=== PATIENT | male | born 1980 | race Caucasian/White ===

== ENCOUNTER 2018-11-01 00:46 | Inpatient (IN) | payer MEDICAID | END 2018-11-08 15:15 | disposition home or self-care (01) | LOC: ICU 2S 11-04 05:10 → PCU 3S 11-05 01:30 → ER 00:46 → ED HOLD 02:50 → SUR 3N 16:30 ==

== ENCOUNTER 2021-02-11 13:53 | Inpatient (IN) | payer MEDICAID ==
[~2021-02-11] VITALS: Ht 177.8 cm; Wt 105.0 kg
[~2021-02-11 13:53] MED LIST: FOLI1TAB16 PO; LOP25T PO; rocuronium bromide 100mg/10ml (10mg/ml) injection IV ONE; thiamine tablet PO
[2021-02-11] MEDS ORDERED: thiamine 100mg tablet PO ONE (14:20)
[2021-02-11] MEDS ORDERED: LORazepam 2 mg/ml vial IV ONE ×3 (14:20→18:00)
[2021-02-11] MEDS ORDERED: normal saline 1000ml 1,000 ML IV ONE ×2 (14:20→19:40)
[2021-02-11 14:50] LABS: EOSINOPHILS % (AUTO) 0.1 % (0-6); MONOCYTES # (AUTO) 0.5 X10'3 (0-0.9); RED BLOOD COUNT 5.43 X10'6 (4.70-6.10)
[2021-02-11 14:52] LABS: BASOPHILS % (AUTO) 0.9 % (0-1); HEMATOCRIT 47.6 % (42.0-52.0); HEMOGLOBIN 16.1 g/dl (14.0-17.9); LYMPHOCYTES # (AUTO) 0.4 X10'3 (1.1-4.8); LYMPHOCYTES % (AUTO) 9.4 % (21-51); MEAN CORPUSCULAR HEMOGLOBIN 29.8 PG (27.0-31.0); MEAN CORPUSCULAR HGB CONC 33.9 g/dL (33.0-36.5); MEAN CORPUSCULAR VOLUME 87.8 FL (78-98); MEAN PLATELET VOLUME 9.5 FL (7.4-10.4); MONOCYTES % (AUTO) 10.6 % (2-12); NEUTROPHILS # (AUTO) 3.5 X10'3 (1.8-7.7); RED CELL DISTRIBUTION WIDTH 18.8 % (11.5-14.5); WHITE BLOOD COUNT 4.4 X10'3 (4.5-11.0)
[2021-02-11 15:03] LABS: ALANINE AMINOTRANSFERASE 101 U/L (12-78); ALBUMIN 3.9 G/DL (3.4-5.0); ALBUMIN/GLOBULIN RATIO 0.8 (1.1-1.5); ALKALINE PHOSPHATASE 93 IU/L (46-116); ANION GAP 17 (8-16); ASPARTATE AMINO TRANSFERASE 119 U/L (10-37); BLOOD UREA NITROGEN 9 MG/DL (7-18); BUN/CREATININE RATIO 7.9 (5.4-32.0); CALCIUM 9.3 MG/DL (8.5-10.1); CHLORIDE 94 MMOL/L (99-107); CREATININE 1.14 MG/DL (0.60-1.10); GLUCOSE 153 MG/DL (70-104); SODIUM 135 MMOL/L (135-145); TOTAL PROTEIN 8.5 G/DL (6.4-8.2); eGFR 72 ML/MIN
[2021-02-11 15:10] LABS: PLATELET COUNT 47 X10'3 (140-440)
[2021-02-11 15:12] LABS: ANISOCYTOSIS 2+; PLATELET ESTIMATE DECREASED
[2021-02-11 15:13] LABS: TEAR DROP CELLS 1+
--- NOTE | 2021-02-11 15:25 | NUR ---
Dr Hdz made aware of HR 140's-160's, also informed MD patient placed on O2 2L via nasal canula for SPO2 89-91% for past 25 min. Primary RN Lucille made aware.
--- NOTE | 2021-02-11 15:29 | NUR ---
patient is very tremulous, reports last etoh 2 days ago
--- NOTE | 2021-02-11 15:40 | NUR ---
DR JONES AWARE THAT PATIENT IS VERY TREMULOUS AFTER THE 4MG IV ATIVAN AFTER 2MG ATIVAN IV, MD ORDERED PHENOBARBITAL. AWARE THAT PATIENT UNABLE TO GO TO CT SCAN UNTIL HE IS NOT SHAKING
--- NOTE | 2021-02-11 16:11 | NUR ---
SPOKE TO PHARMACY TO OBTAIN PHENOBARBITAL
--- NOTE | 2021-02-11 16:22 | NUR ---
PHENOBARB NOT READY YET
[2021-02-11] MEDS ORDERED: phenobarbital inj 500 MG in normal saline 250ml IV soln 250 ML IV ONE (16:30)
[2021-02-11] MEDS: phenobarbital inj 260 MG in normal saline 100ml IV soln 100 ML IV SCH ×2 (16:56→17:29)
[2021-02-11] MEDS: potassium Cl 20mEq in D5-NS 1,000 ML IV SCH ×4 (16:57→23:02)
--- NOTE | 2021-02-11 17:19 | NUR ---
VANESA KEITH MOTHER [phone] TOOK HIS MEDICATIONS AND HIS CLOTHES HOME
--- NOTE | 2021-02-11 17:25 | NUR ---
DR SANTOS CHECKIMG IN ON PATIENT
[2021-02-11] MEDS ORDERED: acetaminophen 325mg tablet PO STA (17:54)
[2021-02-11] MEDS ORDERED: vancomycin/NS 1 GM ADD-VANTAGE 250 ML IV ONE (17:55)
[2021-02-11 18:19] LABS: CLARITY,URINE CLEAR (Clear); COLOR,URINE YELLOW (Yellow); GLUCOSE, URINE NEGATIVE (Neg); KETONES,URINE >=80 mg/dl (Neg); LEUKOCYTE ESTERASE ,URINE NEGATIVE (Neg); NITRITES, URINE NEGATIVE (Neg); OCCULT BLOOD,URINE TRACE-INTACT (Neg); PROTEIN,URINE 100 mg/dl (Neg); UROBILINOGEN,URINE 0.2 E.U/dL (0.2-1.0)
[2021-02-11 18:30] LABS: UA COLLECTION TYPE URINAL
[2021-02-11 18:31] LABS: BACTERIA,URINE FEW /HPF (Neg); RBC,URINE 0-2 /HPF (0-2); SQUAMOUS EPITHELIAL CELL,UR FEW /LPF (FEW); WBC,URINE NONE SEEN /HPF (0-4)
--- NOTE | 2021-02-11 18:33 | NUR ---
DR JONES MADE AWARE 6 MG OF ATIVAN IVP NOT EFFECTIVE ON PATIENT.
[2021-02-11] MEDS ORDERED: dexmedetomidin/NS 400mcg/100ml 100 ML IV SCH (18:35)
--- NOTE | 2021-02-11 18:35 | NUR ---
PATIENT DANGEROUSLY AGITATED, ATTEMPTING TO CLIMB OUT OF BED, NOT FOLLOWING COMMANDS, ATTEMPTING TO RIP OUT IV AND ANYTHING ATTCHRED TO HIM. PLAN WAS TO ATTEMPT PRECEDEX GTT BUT DISCUSSION WITH DR JONES, WE ARE GOING TO INTUBATE PATIENT. HR 145 ST, RR 38, PLACED ON 100% NON BREATHER
--- NOTE | 2021-02-11 18:40 | NUR ---
PT MOVED FROM BED 15 TO BED 2 FOR INTUBATION/RSI.
[2021-02-11] MEDS ORDERED: propofol 10mg/ml 20ml vial IV ONE (18:45)
[2021-02-11] MEDS ORDERED: rocuronium 10mg/ml inj IV ONE (18:45)
[2021-02-11] MEDS ORDERED: piperacillin/tazo 4.5gm/100ml 100 ML IV ONE ×2 (18:50→20:00)
--- NOTE | 2021-02-11 19:00 | NUR ---
PATIENT INTUBATED BY DR JONES WITH 8.0 OETT, 24 CM AT LIP, COLOR CHANGE, AUSCULTAION AND DIRECT VISUALIZATION. 120 MG ROCURONIUM AND 150 MG DIPRIVAN GIVEN FOR INTUBATION, 16 TUNISIAN OG TUBE PLACED POSITIVE AIR BOLUS, CXR TAKEN, TEMP CONTRERAS TO BE PLACED BY TERRANCE BARBA. BEDSIDE REPORT GIVEN TO TERRANCE BARBA
--- NOTE | 2021-02-11 19:01 | NUR ---
[address]G [address] JONES PRIOR TO INTUBATION
[2021-02-11] MEDS ORDERED: FENTANYL-0.9 % NACL/PF 100 ML IV PRN (19:10)
--- NOTE | 2021-02-11 19:28 | NUR ---
SPOKE WITH MOTHER KAYLENE KEITH, UPDATED HER REGARDING ALCOHOL WITHDRAWAL SEVERE ENOUGH TO BE PLACED ON A BREATHING MACHINE AND REQUIRING SEDATION, ALL QUESTIONS ANSWERED IN SIMPLE TERMS. OFFERED TO HAVE MOTHER SPEAK TO MD, MOTHER DECLINED.
[2021-02-11 19:34] LABS: ABG BASE EXCESS -1.3 mmol/L (-2.0-2.0); ABG HCO3 22.4 mmol/L (22.0-26.0); ABG OXYGEN SATURATION 89.6 % (94-97); ABG PCO2 (T) 34.4 mmHg (35.0-48.0); ABG PO2 (T) 59.7 mmHg (75.0-100.0); ALLEN'S TEST POSITIVE; FCOHb 1.6 % (0.0-3.9); FMetHb 0.2 % (0.0-1.5); PATIENT TEMPERATURE 36.7; PEEP 5 cm H2O; RESPIRATORY RATE 16 b/min; TIDAL VOLUME 500 mL; TOTAL HEMOGLOBIN 15.4 G/dl (14.0-18.0)
[2021-02-11] MEDS: potassium Cl 10 mEq/100mL bag IV SCH ×3 (20:20→22:20)
[2021-02-11] MEDS ORDERED: THIAMINE IV SCH (20:20)
[2021-02-11] MEDS ORDERED: magnesium 2GM in 50ml NS 50 ML IV ONE (20:20)
[2021-02-11] MEDS ORDERED: MAGNESIUM SULF IV SCH (20:20)
[2021-02-11] MEDS ORDERED: WATER IV SCH (20:20)
[2021-02-11] MEDS ORDERED: DEXTROSE 5% IV SCH (20:20)
[2021-02-11] MEDS: midazolam 100mg in NS 100ml 100 ML IV PRN (20:29)
[2021-02-11] MEDS: propofol 1000mg/100ml bottle 100 ML IV PRN (20:39)
[2021-02-11 20:45] LABS: MAGNESIUM 2.5 MG/DL (1.5-2.4); PHOSPHORUS 1.6 MG/DL (2.3-4.5)
[2021-02-11] MEDS ORDERED: levetiracetam inj 2,000 MG in normal saline 250ml IV soln 250 ML IV ONE (20:50)
--- NOTE | 2021-02-11 21:40 | NUR ---
Spoke with ICU MD via phone: pt still not sedated enough to do LP, still with slight tremors of hand, movement when rolled, gagging on ET tube while being rolled. [employer] ok to start Precedex in addition to Propofol and Versed gtt, states "ok to max out Precedex, he will take a lot of sedation."
--- NOTE | 2021-02-11 21:45 | NUR ---
Pt positioned for LP by ER MD. LP perfomed and fluid sent to lab. Dressing applied to puncture site and patient repositioned on his back.
[2021-02-11] MEDS: dexmedetomidine/D5W 100mL 100 ML IV SCH (22:32)
--- NOTE | 2021-02-11 22:40 | NUR ---
OG tube in place, 150 ml watery greenish yellow in collection canister
[2021-02-11 23:28] LABS: GLUCOSE,CSF 84 MG/DL (40-75); TOTAL PROTEIN,CSF 28 MG/DL (15-45)
[2021-02-11 23:57] VITALS: BP 116/77
[2021-02-12] VITALS (24 sets, daily range): BP systolic 99–161; BP diastolic 66–86
[2021-02-12 00:27] LABS: APPEARANCE,CSF CLEAR; CSF RBC 6 /CU MM (0); CSF SUPERNATANT COLOR COLORLESS; CSF VOLUME 8 ML; TUBE# COUNTED 1
[2021-02-12 00:28] LABS: CSF WBC CT 1 /CU MM (0-5)
[2021-02-12 00:29] LABS: APPEARANCE,CSF CLEAR; CSF RBC 0 /CU MM (0); CSF SUPERNATANT COLOR COLORLESS; CSF VOLUME 8 ML; CSF WBC CT 0 /CU MM (0-5); TUBE# COUNTED 4
[2021-02-12] MEDS: dexmedetomidine/D5W 100mL 100 ML IV SCH ×5 (00:34→22:07)
[2021-02-12] MEDS: propofol 1000mg/100ml bottle 100 ML IV PRN ×2 (00:36→09:18)
[2021-02-12] MEDS: midazolam 100mg in NS 100ml 100 ML IV PRN ×2 (01:26→22:36)
[2021-02-12] MEDS: potassium Cl 20mEq in D5-NS 1,000 ML IV SCH ×5 (01:35→21:35)
[2021-02-12 02:42] LABS: ABG PCO2 (T) 29.3 mmHg (35.0-48.0); ABG PO2 (T) 133.4 mmHg (75.0-100.0); ALLEN'S TEST POSITIVE; PATIENT TEMPERATURE 35.9; PEEP 5 cm H2O; RESPIRATORY RATE 16 b/min; TIDAL VOLUME 500 mL
[2021-02-12 02:43] LABS: ABG BASE EXCESS -1.4 mmol/L (-2.0-2.0); ABG HCO3 21.4 mmol/L (22.0-26.0); ABG OXYGEN SATURATION 98.7 % (94-97); FCOHb 0.4 % (0.0-3.9); FMetHb 0.2 % (0.0-1.5); FO2Hb 98.1 % (94-97); TOTAL HEMOGLOBIN 13.7 G/dl (14.0-18.0)
[2021-02-12 07:33] LABS: ALBUMIN 2.7 G/DL (3.4-5.0); ANION GAP 11 (8-16); BLOOD UREA NITROGEN 6 MG/DL (7-18); BUN/CREATININE RATIO 8.2 (5.4-32.0); CALCIUM 8.1 MG/DL (8.5-10.1); CHLORIDE 107 MMOL/L (99-107); CREATININE 0.73 MG/DL (0.60-1.10); GLUCOSE 109 MG/DL (70-104); MAGNESIUM 2.2 MG/DL (1.5-2.4); PHOSPHORUS 2.2 MG/DL (2.3-4.5); SODIUM 142 MMOL/L (135-145); TOTAL CARBON DIOXIDE 24.4 MMOL/L (24-32); eGFR > 90 ML/MIN
[2021-02-12 07:39] LABS: POTASSIUM 2.6 MMOL/L (3.5-5.1)
[2021-02-12 07:49] LABS: BASOPHILS % (AUTO) 0.5 % (0-1); EOSINOPHILS % (AUTO) 1.4 % (0-6); HEMATOCRIT 40.2 % (42.0-52.0); HEMOGLOBIN 13.3 g/dl (14.0-17.9); LYMPHOCYTES # (AUTO) 1.3 X10'3 (1.1-4.8); LYMPHOCYTES % (AUTO) 38.2 % (21-51); MEAN CORPUSCULAR HEMOGLOBIN 29.7 PG (27.0-31.0); MEAN CORPUSCULAR VOLUME 89.9 FL (78-98); MEAN PLATELET VOLUME 10.1 FL (7.4-10.4); MONOCYTES # (AUTO) 0.4 X10'3 (0-0.9); MONOCYTES % (AUTO) 10.8 % (2-12); NEUTROPHILS # (AUTO) 1.7 X10'3 (1.8-7.7); NEUTROPHILS % (AUTO) 49.1 % (42-75); RED BLOOD COUNT 4.47 X10'6 (4.70-6.10); RED CELL DISTRIBUTION WIDTH 18.4 % (11.5-14.5); WHITE BLOOD COUNT 3.4 X10'3 (4.5-11.0)
[2021-02-12] MEDS: pantoprazole 40 MG vial IV SCH (07:50)
[2021-02-12] MEDS: thiamine inj. 100 MG in normal saline 100ml IV soln 100 ML IV SCH (07:50)
[2021-02-12] MEDS: folic acid 1mg/0.2ml inj IV SCH (07:51)
[2021-02-12 07:54] LABS: PLATELET COUNT 31 X10'3 (140-440)
[2021-02-12] MEDS ORDERED: multi-vitamin w/minerals & ferrous gluconate 9 MG/15 ML oral LIQUID NG SCH (08:00)
[2021-02-12] MEDS ORDERED: thiamine 100mg/ml 2ml inj. IV SCH (08:00)
[2021-02-12] MEDS: levetiracetamNACL 1500mg/100mL 100 ML IV SCH ×2 (10:08→19:39)
[2021-02-12] MEDS ORDERED: multivitamin oral liquid (Certavite) 5ml cup NG SCH (10:45)
[2021-02-12] MEDS ORDERED: LURA60TA PO (11:12)
[2021-02-12] MEDS ORDERED: ADAL40PE SQ (11:12)
[2021-02-12] MEDS ORDERED: BUPR300T86 PO (11:12)
[2021-02-12] MEDS ORDERED: NALT50TA PO (11:12)
[2021-02-12] MEDS ORDERED: GABA800T11 PO (11:12)
[2021-02-12] MEDS ORDERED: CLON0.1T2 PO (11:12)
[2021-02-12] MEDS: MULTIVIT-MIN/FERROUS GLUCONATE 9 MG/15 ML LIQUID NG SCH (11:37)
[2021-02-12 11:58] LABS: AMYLASE 21 U/L (25-115); LIPASE 81 U/L (73-393)
--- NOTE | 2021-02-12 12:10 | NUR ---
TF Consult: Pt intubated admit DX DT's and seizure r/t etoh withdrawal, thrombocytopenia, and respiratory failure w/ hx 12 beers daily reported per EMR. MAP 82 this AM w/ OG in place and TF to start today per shafting cleaner; recs below using IBW pending scaled wt this admit. Pt pending MRI once able as well as lipase/amylase to check for pancreatitis per shafting cleaner at rounds. Receiving thiamin and folic acid for etoh hx as well as electrolyte replacements per protocol. Will monitor for TF tolerance and adjustment needs as medically indicated. Rec: 1. Continuous TF per MD using Vital High Protein at 75ml/hr goal; to provide 1800ml volume, 1800 kcals, 1512ml free water, and 158g protein. 2. additional water flush 150ml Q4 3. PALB Q /; daily wts 4. thiamin, folic acid for etoh hx 5. routine bowel care 6. monitor for TF tolerance and adjustment needs Addendum: 02/12/21 at [address] Amended: Links added.
[2021-02-12 12:30] LABS: PREALBUMIN 20.9 MG/DL (19-36)
[2021-02-12] MEDS ORDERED: magnesium 4gm in 100ml NS 100 ML IV PRN (15:20)
[2021-02-12] MEDS ORDERED: magnesium 2GM in 50ml NS 50 ML IV PRN (15:20)
[2021-02-12] MEDS ORDERED: potassium Cl 20 mEq SR tablet PO PRN (15:20)
--- NOTE | 2021-02-12 18:21 | NUR ---
Problems reprioritized. Patient report given, questions answered & plan of care reviewed with Josee Richard.
--- NOTE | 2021-02-12 18:30 | NUR ---
Patient in room CICU 2007. I have received report from Una BARBA and had the opportunity to ask questions and assume patient care.
[2021-02-12] MEDS: potassium Cl 40MEQ/1/2NS 520ml 520 ML IV PRN ×2 (18:38→22:42)
[2021-02-12] MEDS: albuterol 2.5 MG/3 ML nebule NEB SCH ×2 (19:03→23:32)
[2021-02-12] MEDS: docusate sodium 100mg/10ml UD cup PO SCH (19:40)
[2021-02-13] VITALS (24 sets, daily range): BP systolic 113–149; BP diastolic 67–98
[2021-02-13] MEDS: dexmedetomidine/D5W 100mL 100 ML IV SCH ×4 (02:44→21:02)
[2021-02-13] MEDS: albuterol 2.5 MG/3 ML nebule NEB SCH ×6 (02:59→23:15)
[2021-02-13 03:13] LABS: ABG HCO3 21.5 mmol/L (22.0-26.0); ABG OXYGEN SATURATION 97.3 % (94-97); ABG PCO2 (T) 32.3 mmHg (35.0-48.0); ABG PO2 (T) 90.7 mmHg (75.0-100.0); ALLEN'S TEST POSITIVE; FCOHb 0.5 % (0.0-3.9); FMetHb 0.3 % (0.0-1.5); FO2Hb 96.5 % (94-97); PATIENT TEMPERATURE 36.5; PEEP 5 cm H2O; RESPIRATORY RATE 14 b/min; TIDAL VOLUME 500 mL; TOTAL HEMOGLOBIN 13.8 G/dl (14.0-18.0)
[2021-02-13] MEDS: potassium Cl 20mEq in D5-NS 1,000 ML IV SCH (04:15)
[2021-02-13] MEDS: propofol 1000mg/100ml bottle 100 ML IV PRN ×3 (05:05→20:16)
[2021-02-13 06:15] LABS: MAGNESIUM 1.7 MG/DL (1.5-2.4)
[2021-02-13 06:33] LABS: POTASSIUM 3.2 MMOL/L (3.5-5.1)
[2021-02-13 07:54] LABS: BASOPHILS % (AUTO) 0.3 % (0-1); EOSINOPHILS # (AUTO) 0.1 X10'3 (0-0.9); EOSINOPHILS % (AUTO) 1.2 % (0-6); HEMATOCRIT 41.7 % (42.0-52.0); HEMOGLOBIN 13.5 g/dl (14.0-17.9); LYMPHOCYTES % (AUTO) 19.1 % (21-51); MEAN CORPUSCULAR HEMOGLOBIN 29.6 PG (27.0-31.0); MEAN CORPUSCULAR HGB CONC 32.3 g/dL (33.0-36.5); MEAN CORPUSCULAR VOLUME 91.8 FL (78-98); MEAN PLATELET VOLUME 10.6 FL (7.4-10.4); MONOCYTES # (AUTO) 0.4 X10'3 (0-0.9); MONOCYTES % (AUTO) 7.6 % (2-12); NEUTROPHILS # (AUTO) 3.9 X10'3 (1.8-7.7); NEUTROPHILS % (AUTO) 71.8 % (42-75); RED BLOOD COUNT 4.54 X10'6 (4.70-6.10); WHITE BLOOD COUNT 5.4 X10'3 (4.5-11.0)
[2021-02-13 08:00] LABS: PLATELET COUNT 35 X10'3 (140-440)
[2021-02-13] MEDS: K and/or MAG REPLACEMENT MC SCH (08:00)
[2021-02-13] MEDS: folic acid 1mg/0.2ml inj IV SCH (08:00)
[2021-02-13] MEDS: docusate sodium 100mg/10ml UD cup PO SCH ×2 (08:00→20:00)
[2021-02-13 08:01] LABS: ALANINE AMINOTRANSFERASE 70 U/L (12-78); ALBUMIN 2.6 G/DL (3.4-5.0); ALBUMIN/GLOBULIN RATIO 0.7 (1.1-1.5); ALKALINE PHOSPHATASE 75 IU/L (46-116); ANION GAP 14 (8-16); ASPARTATE AMINO TRANSFERASE 79 U/L (10-37); BILIRUBIN,TOTAL 0.7 MG/DL (0.1-1.0); BLOOD UREA NITROGEN 4 MG/DL (7-18); BUN/CREATININE RATIO 5.7 (5.4-32.0); CALCIUM 8.2 MG/DL (8.5-10.1); CHLORIDE 107 MMOL/L (99-107); GLUCOSE 153 MG/DL (70-104); SODIUM 142 MMOL/L (135-145); TOTAL CARBON DIOXIDE 21.1 MMOL/L (24-32); TOTAL PROTEIN 6.4 G/DL (6.4-8.2); eGFR > 90 ML/MIN
[2021-02-13] MEDS: MULTIVIT-MIN/FERROUS GLUCONATE 9 MG/15 ML LIQUID NG SCH (09:00)
[2021-02-13] MEDS: midazolam 100mg in NS 100ml 100 ML IV PRN ×3 (09:01→22:54)
[2021-02-13] MEDS: thiamine inj. 100 MG in normal saline 100ml IV soln 100 ML IV SCH (09:01)
[2021-02-13] MEDS: pantoprazole 40 MG vial IV SCH (09:02)
[2021-02-13] MEDS: levetiracetamNACL 1500mg/100mL 100 ML IV SCH ×2 (09:02→20:01)
[2021-02-13 09:20] LABS: PLATELET ESTIMATE DECREASED
[2021-02-13 09:22] LABS: ANISOCYTOSIS 1+
[2021-02-13 09:23] LABS: LARGE PLATELETS FEW
[2021-02-13] MEDS: potassium Cl 40MEQ/1/2NS 520ml 520 ML IV PRN (11:10)
--- NOTE | 2021-02-13 14:23 | NUR ---
Patient in room CICU 2007. I have received report from Josee BARBA and had the opportunity to ask questions and assume patient care.
--- NOTE | 2021-02-13 18:07 | NUR ---
Problems reprioritized. Patient report given, questions answered & plan of care reviewed with Bethany BARBA.
--- NOTE | 2021-02-13 18:30 | NUR ---
Patient in room CICU 2007. I have received report from Una BARBA and had the opportunity to ask questions and assume patient care.
[2021-02-14] VITALS (22 sets, daily range): BP systolic 117–139; BP diastolic 68–93
[2021-02-14] MEDS: dexmedetomidine/D5W 100mL 100 ML IV SCH ×3 (02:37→22:13)
[2021-02-14] MEDS: albuterol 2.5 MG/3 ML nebule NEB SCH ×6 (02:56→23:06)
[2021-02-14 04:10] LABS: ABG BASE EXCESS 2.1 mmol/L (-2.0-2.0); ABG HCO3 24.9 mmol/L (22.0-26.0); ABG OXYGEN SATURATION 96.3 % (94-97); ABG PCO2 (T) 34.6 mmHg (35.0-48.0); ABG PO2 (T) 87.8 mmHg (75.0-100.0); ALLEN'S TEST POSITIVE; FCOHb 0.3 % (0.0-3.9); FMetHb 0.4 % (0.0-1.5); FO2Hb 95.6 % (94-97); PEEP 5 cm H2O; RESPIRATORY RATE 14 b/min; TIDAL VOLUME 500 mL; TOTAL HEMOGLOBIN 13.7 G/dl (14.0-18.0)
[2021-02-14 04:37] LABS: BASOPHILS % (AUTO) 0.4 % (0-1); EOSINOPHILS # (AUTO) 0.1 X10'3 (0-0.9); EOSINOPHILS % (AUTO) 1.5 % (0-6); HEMATOCRIT 39.2 % (42.0-52.0); HEMOGLOBIN 13.1 g/dl (14.0-17.9); LYMPHOCYTES # (AUTO) 1.5 X10'3 (1.1-4.8); LYMPHOCYTES % (AUTO) 22.5 % (21-51); MEAN CORPUSCULAR HEMOGLOBIN 30.2 PG (27.0-31.0); MEAN CORPUSCULAR HGB CONC 33.5 g/dL (33.0-36.5); MEAN CORPUSCULAR VOLUME 90.3 FL (78-98); MONOCYTES # (AUTO) 0.9 X10'3 (0-0.9); MONOCYTES % (AUTO) 13.8 % (2-12); NEUTROPHILS % (AUTO) 61.8 % (42-75); RED BLOOD COUNT 4.34 X10'6 (4.70-6.10); WHITE BLOOD COUNT 6.5 X10'3 (4.5-11.0)
[2021-02-14 04:42] LABS: PLATELET COUNT 50 X10'3 (140-440)
[2021-02-14 04:49] LABS: ALANINE AMINOTRANSFERASE 61 U/L (12-78); ALBUMIN 2.6 G/DL (3.4-5.0); ALBUMIN/GLOBULIN RATIO 0.7 (1.1-1.5); ALKALINE PHOSPHATASE 70 IU/L (46-116); ANION GAP 10 (8-16); ASPARTATE AMINO TRANSFERASE 46 U/L (10-37); BILIRUBIN,TOTAL 0.7 MG/DL (0.1-1.0); BLOOD UREA NITROGEN 4 MG/DL (7-18); BUN/CREATININE RATIO 6.6 (5.4-32.0); CALCIUM 8.5 MG/DL (8.5-10.1); CHLORIDE 103 MMOL/L (99-107); CREATININE 0.61 MG/DL (0.60-1.10); GLUCOSE 122 MG/DL (70-104); MAGNESIUM 1.5 MG/DL (1.5-2.4); SODIUM 140 MMOL/L (135-145); TOTAL CARBON DIOXIDE 27.5 MMOL/L (24-32); TOTAL PROTEIN 6.6 G/DL (6.4-8.2); eGFR > 90 ML/MIN
[2021-02-14 04:51] LABS: POTASSIUM 2.6 MMOL/L (3.5-5.1)
[2021-02-14] MEDS: midazolam 100mg in NS 100ml 100 ML IV PRN ×3 (05:31→20:48)
[2021-02-14] MEDS: potassium Cl 40MEQ/1/2NS 520ml 520 ML IV PRN ×2 (05:31→12:05)
[2021-02-14] MEDS: propofol 1000mg/100ml bottle 100 ML IV PRN ×3 (05:33→19:16)
--- NOTE | 2021-02-14 06:27 | NUR ---
Problems reprioritized. Patient report given, questions answered & plan of care reviewed with Sachin BARBA.
--- NOTE | 2021-02-14 06:38 | NUR ---
Patient in room CICU 2008. I have received report from Bethany BARBA and had the opportunity to ask questions and assume patient care.
[2021-02-14] MEDS: K and/or MAG REPLACEMENT MC SCH (08:00)
[2021-02-14] MEDS: levetiracetamNACL 1500mg/100mL 100 ML IV SCH ×2 (08:26→19:57)
[2021-02-14] MEDS: thiamine inj. 100 MG in normal saline 100ml IV soln 100 ML IV SCH (08:26)
[2021-02-14] MEDS: MULTIVIT-MIN/FERROUS GLUCONATE 9 MG/15 ML LIQUID NG SCH (08:27)
[2021-02-14] MEDS: docusate sodium 100mg/10ml UD cup PO SCH ×2 (08:27→19:57)
[2021-02-14] MEDS: pantoprazole 40 MG vial IV SCH (08:27)
[2021-02-14] MEDS: folic acid 1mg/0.2ml inj IV SCH (08:27)
[2021-02-14] MEDS ORDERED: Neutra Phos packet PO PRN (11:10)
[2021-02-14] MEDS ORDERED: sodium phosphate inj. 15 MMOL in dextrose 5%-water 250 ML IV PRN (11:10)
[2021-02-14] MEDS ORDERED: sodium phosphate inj. 30 MMOL in dextrose 5%-water 250 ML IV PRN (11:10)
[2021-02-14 13:16] LABS: PHOSPHORUS 2.2 MG/DL (2.3-4.5)
--- NOTE | 2021-02-14 18:15 | NUR ---
report received and discussed with JAMESON Stephenson
--- NOTE | 2021-02-14 20:03 | NUR ---
Patient has been assessed and turned, he is on ICU drips; diprivan, precedex and versed. he is been monitored, his vital signs are stable.
[2021-02-15] VITALS (24 sets, daily range): BP systolic 108–160; BP diastolic 47–95
--- NOTE | 2021-02-15 00:23 | NUR ---
patient has been bathed and oral care done, all linens changed. patient is lightly sedated.
[2021-02-15] MEDS: midazolam 100mg in NS 100ml 100 ML IV PRN ×5 (01:47→20:17)
[2021-02-15] MEDS: albuterol 2.5 MG/3 ML nebule NEB SCH ×6 (03:07→23:06)
[2021-02-15] MEDS: dexmedetomidine/D5W 100mL 100 ML IV SCH ×4 (03:16→23:31)
[2021-02-15 03:55] LABS: ABG BASE EXCESS 2.9 mmol/L (-2.0-2.0); ABG HCO3 26.9 mmol/L (22.0-26.0); ABG OXYGEN SATURATION 94.6 % (94-97); ABG PCO2 (T) 39.2 mmHg (35.0-48.0); ALLEN'S TEST POSITIVE; FCOHb 0.5 % (0.0-3.9); FO2Hb 94.1 % (94-97); PATIENT TEMPERATURE 37.2; PEEP 5 cm H2O; RESPIRATORY RATE 12 b/min; TIDAL VOLUME 500 mL; TOTAL HEMOGLOBIN 13.6 G/dl (14.0-18.0)
--- NOTE | 2021-02-15 06:12 | NUR ---
report given to AJMESON Gray.
[2021-02-15 07:34] LABS: BASOPHILS % (AUTO) 0.5 % (0-1); EOSINOPHILS # (AUTO) 0.1 X10'3 (0-0.9); EOSINOPHILS % (AUTO) 1.9 % (0-6); HEMATOCRIT 38.5 % (42.0-52.0); HEMOGLOBIN 12.8 g/dl (14.0-17.9); MEAN CORPUSCULAR HEMOGLOBIN 30.1 PG (27.0-31.0); MEAN CORPUSCULAR HGB CONC 33.3 g/dL (33.0-36.5); MEAN CORPUSCULAR VOLUME 90.4 FL (78-98); MEAN PLATELET VOLUME 9.2 FL (7.4-10.4); MONOCYTES # (AUTO) 1.3 X10'3 (0-0.9); MONOCYTES % (AUTO) 17.4 % (2-12); NEUTROPHILS # (AUTO) 4.9 X10'3 (1.8-7.7); NEUTROPHILS % (AUTO) 67.2 % (42-75); PLATELET COUNT 85 X10'3 (140-440); RED BLOOD COUNT 4.26 X10'6 (4.70-6.10); RED CELL DISTRIBUTION WIDTH 17.9 % (11.5-14.5); WHITE BLOOD COUNT 7.4 X10'3 (4.5-11.0)
[2021-02-15 07:48] LABS: ALANINE AMINOTRANSFERASE 53 U/L (12-78); ALBUMIN 2.6 G/DL (3.4-5.0); ALBUMIN/GLOBULIN RATIO 0.6 (1.1-1.5); ALKALINE PHOSPHATASE 64 IU/L (46-116); ANION GAP 9 (8-16); ASPARTATE AMINO TRANSFERASE 34 U/L (10-37); BILIRUBIN,TOTAL 0.8 MG/DL (0.1-1.0); BLOOD UREA NITROGEN 7 MG/DL (7-18); CALCIUM 8.8 MG/DL (8.5-10.1); CHLORIDE 105 MMOL/L (99-107); CREATININE 0.54 MG/DL (0.60-1.10); GLUCOSE 137 MG/DL (70-104); MAGNESIUM 1.5 MG/DL (1.5-2.4); PHOSPHORUS 3.8 MG/DL (2.3-4.5); POTASSIUM 3.1 MMOL/L (3.5-5.1); PREALBUMIN 16.3 MG/DL (19-36); SODIUM 142 MMOL/L (135-145); TOTAL CARBON DIOXIDE 27.8 MMOL/L (24-32); eGFR > 90 ML/MIN
[2021-02-15] MEDS: MULTIVIT-MIN/FERROUS GLUCONATE 9 MG/15 ML LIQUID NG SCH (08:27)
[2021-02-15] MEDS: pantoprazole 40 MG vial IV SCH (08:27)
[2021-02-15] MEDS: potassium Cl 20 mEq SR tablet PO PRN ×3 (08:27→21:12)
[2021-02-15] MEDS: docusate sodium 100mg/10ml UD cup PO SCH ×2 (08:27→20:15)
[2021-02-15] MEDS: heparin, porcine 5000 units/ml vial SQ SCH ×2 (08:28→20:16)
[2021-02-15] MEDS: levetiracetamNACL 1500mg/100mL 100 ML IV SCH ×2 (08:29→20:16)
[2021-02-15] MEDS: thiamine inj. 100 MG in normal saline 100ml IV soln 100 ML IV SCH (08:29)
[2021-02-15] MEDS: K and/or MAG REPLACEMENT MC SCH (08:30)
[2021-02-15] MEDS: folic acid 1mg/0.2ml inj IV SCH (08:51)
[2021-02-15] MEDS: propofol 1000mg/100ml bottle 100 ML IV PRN ×3 (08:54→20:15)
[2021-02-15 08:59] LABS: ANISOCYTOSIS 1+; PLATELET ESTIMATE DECREASED; TOTAL CELLS COUNTED 100
[2021-02-15 09:00] LABS: HYPOCHROMASIA 1+
--- NOTE | 2021-02-15 11:13 | NUR ---
F/u 02/15: Pt tolerating TF at goal GRV WNL. Rectal tube output down to 200ml from 1000ml prior and s/p phos replacement 02/14 per MD for Phos 2.2. Will continue to monitor for TF tolerance. Rec: 1. Continuous TF per MD using Vital High Protein at 75ml/hr goal; to provide 1800ml volume, 1800 kcals, 1512ml free water, and 158g protein. 2. additional water flush 150ml Q4 3. PALB Q ; daily wts 4. thiamin, folic acid for etoh hx 5. bowel care per rx Addendum: 02/15/21 at [address] Amended: Links added.
--- NOTE | 2021-02-15 18:15 | NUR ---
Patient in room CICU 2008. I have received report from Isaac BARBA and had the opportunity to ask questions and assume patient care.
[2021-02-16] VITALS (21 sets, daily range): BP systolic 102–152; BP diastolic 50–86
[2021-02-16] MEDS: midazolam 100mg in NS 100ml 100 ML IV PRN (02:22)
[2021-02-16] MEDS: propofol 1000mg/100ml bottle 100 ML IV PRN ×2 (02:22→09:42)
[2021-02-16] MEDS: albuterol 2.5 MG/3 ML nebule NEB SCH ×6 (03:08→23:43)
[2021-02-16] MEDS: dexmedetomidine/D5W 100mL 100 ML IV SCH ×4 (03:33→18:25)
[2021-02-16 03:48] LABS: ABG BASE EXCESS 3.4 mmol/L (-2.0-2.0); ABG OXYGEN SATURATION 94.3 % (94-97); ABG PCO2 (T) 42.2 mmHg (35.0-48.0); ABG PO2 (T) 72.4 mmHg (75.0-100.0); ALLEN'S TEST POSITIVE; FCOHb 0.4 % (0.0-3.9); FMetHb 0.2 % (0.0-1.5); FO2Hb 93.7 % (94-97); PEEP 5 cm H2O; RESPIRATORY RATE 14 b/min; TIDAL VOLUME 500 mL; TOTAL HEMOGLOBIN 13.3 G/dl (14.0-18.0)
[2021-02-16 04:47] LABS: BASOPHILS # (AUTO) 0.1 X10'3 (0-0.2); EOSINOPHILS # (AUTO) 0.2 X10'3 (0-0.9); HEMOGLOBIN 11.8 g/dl (14.0-17.9); LYMPHOCYTES # (AUTO) 1.7 X10'3 (1.1-4.8); WHITE BLOOD COUNT 6.4 X10'3 (4.5-11.0)
[2021-02-16 04:48] LABS: BASOPHILS % (AUTO) 1.3 % (0-1); EOSINOPHILS % (AUTO) 2.7 % (0-6); HEMATOCRIT 34.5 % (42.0-52.0); MEAN CORPUSCULAR HEMOGLOBIN 31.5 PG (27.0-31.0); MEAN CORPUSCULAR HGB CONC 34.2 g/dL (33.0-36.5); MEAN CORPUSCULAR VOLUME 92.1 FL (78-98); MEAN PLATELET VOLUME 9.8 FL (7.4-10.4); MONOCYTES # (AUTO) 1.2 X10'3 (0-0.9); MONOCYTES % (AUTO) 19.4 % (2-12); NEUTROPHILS # (AUTO) 3.2 X10'3 (1.8-7.7); NEUTROPHILS % (AUTO) 50.6 % (42-75); PLATELET COUNT 127 X10'3 (140-440); RED BLOOD COUNT 3.74 X10'6 (4.70-6.10); RED CELL DISTRIBUTION WIDTH 18.2 % (11.5-14.5)
[2021-02-16 05:32] LABS: ALANINE AMINOTRANSFERASE 48 U/L (12-78); ALBUMIN 2.4 G/DL (3.4-5.0); ALBUMIN/GLOBULIN RATIO 0.5 (1.1-1.5); ALKALINE PHOSPHATASE 58 IU/L (46-116); ANION GAP 9 (8-16); ASPARTATE AMINO TRANSFERASE 40 U/L (10-37); BILIRUBIN,TOTAL 0.7 MG/DL (0.1-1.0); BLOOD UREA NITROGEN 10 MG/DL (7-18); BUN/CREATININE RATIO 18.9 (5.4-32.0); CALCIUM 8.3 MG/DL (8.5-10.1); CHLORIDE 104 MMOL/L (99-107); CREATININE 0.53 MG/DL (0.60-1.10); GLUCOSE 126 MG/DL (70-104); MAGNESIUM 1.4 MG/DL (1.5-2.4); PHOSPHORUS 4.8 MG/DL (2.3-4.5); POTASSIUM 3.7 MMOL/L (3.5-5.1); SODIUM 140 MMOL/L (135-145); TOTAL PROTEIN 6.9 G/DL (6.4-8.2); eGFR > 90 ML/MIN
--- NOTE | 2021-02-16 06:28 | NUR ---
Problems reprioritized. Patient report given, questions answered & plan of care reviewed with Nalini BARBA.
[2021-02-16 07:09] LABS: ANISOCYTOSIS 2+; PLATELET ESTIMATE DECREASED; TOTAL CELLS COUNTED 100
[2021-02-16] MEDS: folic acid 1mg/0.2ml inj IV SCH (08:00)
[2021-02-16] MEDS: pantoprazole 40 MG vial IV SCH (10:21)
[2021-02-16] MEDS: heparin, porcine 5000 units/ml vial SQ SCH ×2 (10:21→19:29)
[2021-02-16] MEDS: docusate sodium 100mg/10ml UD cup PO SCH ×3 (10:21→19:40)
[2021-02-16] MEDS: MULTIVIT-MIN/FERROUS GLUCONATE 9 MG/15 ML LIQUID NG SCH (10:21)
[2021-02-16] MEDS: levetiracetamNACL 1500mg/100mL 100 ML IV SCH ×2 (10:23→19:29)
[2021-02-16] MEDS: thiamine inj. 100 MG in normal saline 100ml IV soln 100 ML IV SCH (10:23)
[2021-02-16] MEDS ORDERED: ipratropium/albuterol 3ml nebule NEB PRN (15:20)
[2021-02-16] MEDS ORDERED: racepinephrine 11.25mg/0.5ml nebule IH ONE (15:20)
[2021-02-16] MEDS: acetaminophen 650mg rectal suppository RC PRN ×2 (17:30→23:11)
[2021-02-16] MEDS: LORazepam 2 mg/ml vial IV PRN (18:35)
--- NOTE | 2021-02-16 18:45 | NUR ---
Patient in room CICU 2008. I have received report from Tara and had the opportunity to ask questions and assume patient care.
[2021-02-16] MEDS ORDERED: LORazepam 2 mg/ml vial IV ONE ×2 (19:15→21:30)
[2021-02-16] MEDS: guaiFENesin/DM 10ml UD oral syrup PO PRN (19:28)
[2021-02-16] MEDS: benzonatate 100mg capsule PO PRN (20:07)
[2021-02-16] MEDS ORDERED: haloperidol lactate 5mg/ml inj IM PRN (21:30)
[2021-02-16] MEDS ORDERED: dextrose 50%-water 50ml dispensing syringe IV PRN (21:30)
[2021-02-16] MEDS ORDERED: LORazepam 2 mg/ml vial IV PRN (21:30)
[2021-02-16] MEDS: Chloraseptic (Phenol) Spray 177ml MM PRN (22:01)
--- NOTE | 2021-02-16 23:37 | NUR ---
Patient has had been coughing continuously due to throat irritation after being extubated. Notified MD. Tessalon pearles, Robitussin and chloraseptic throat spray ordered. Heart rate has also been elevated in the 130 and 140's. Patient is very shaky and having ETOH withdraw. MD placed patient on severe ETOH withdraw protocol.
[2021-02-17] VITALS (22 sets, daily range): BP systolic 134–164; BP diastolic 56–121
[2021-02-17] MEDS: benzonatate 100mg capsule PO PRN ×2 (01:20→09:03)
[2021-02-17] MEDS: Chloraseptic (Phenol) Spray 177ml MM PRN ×3 (01:21→19:33)
[2021-02-17] MEDS: LORazepam 2 mg/ml vial IV PRN ×5 (01:34→21:52)
[2021-02-17] MEDS: dexmedetomidine/D5W 100mL 100 ML IV SCH (03:08)
[2021-02-17] MEDS: guaiFENesin/DM 10ml UD oral syrup PO PRN (03:26)
[2021-02-17] MEDS: albuterol 2.5 MG/3 ML nebule NEB SCH ×6 (03:49→23:41)
[2021-02-17] MEDS ORDERED: guaiFENesin/codeine phos 10ml UD oral syrup PO PRN (04:05)
[2021-02-17] MEDS ORDERED: methylPREDNISolone sod succ 125mg/2ml vial IV ONE (04:05)
[2021-02-17] MEDS: normal saline 1000ml 1,000 ML IV SCH ×2 (04:19→17:11)
--- NOTE | 2021-02-17 06:11 | NUR ---
Problems reprioritized. Patient report given, questions answered & plan of care reviewed with Tara.
[2021-02-17 07:28] LABS: BASOPHILS % (AUTO) 0.4 % (0-1); EOSINOPHILS % (AUTO) 0 % (0-6); HEMATOCRIT 39.1 % (42.0-52.0); LYMPHOCYTES # (AUTO) 0.7 X10'3 (1.1-4.8); LYMPHOCYTES % (AUTO) 7.2 % (21-51); MEAN CORPUSCULAR HEMOGLOBIN 30.4 PG (27.0-31.0); MEAN CORPUSCULAR HGB CONC 33.1 g/dL (33.0-36.5); MEAN CORPUSCULAR VOLUME 91.7 FL (78-98); MEAN PLATELET VOLUME 9.7 FL (7.4-10.4); MONOCYTES # (AUTO) 2.3 X10'3 (0-0.9); MONOCYTES % (AUTO) 23.4 % (2-12); NEUTROPHILS # (AUTO) 6.7 X10'3 (1.8-7.7); PLATELET COUNT 236 X10'3 (140-440); RED BLOOD COUNT 4.26 X10'6 (4.70-6.10); WHITE BLOOD COUNT 9.7 X10'3 (4.5-11.0)
[2021-02-17 07:35] LABS: MAGNESIUM 1.9 MG/DL (1.5-2.4); PHOSPHORUS 4.4 MG/DL (2.3-4.5)
[2021-02-17] MEDS: MULTIVIT-MIN/FERROUS GLUCONATE 9 MG/15 ML LIQUID NG SCH (08:00)
[2021-02-17] MEDS: docusate sodium 100mg/10ml UD cup PO SCH ×2 (08:00→19:26)
[2021-02-17] MEDS: thiamine inj. 100 MG in normal saline 100ml IV soln 100 ML IV SCH (09:00)
[2021-02-17] MEDS: folic acid 1mg/0.2ml inj IV SCH (09:00)
[2021-02-17] MEDS: pantoprazole 40 MG vial IV SCH (09:03)
[2021-02-17] MEDS: heparin, porcine 5000 units/ml vial SQ SCH ×2 (09:03→19:25)
[2021-02-17 09:22] LABS: ABG BASE EXCESS 2.9 mmol/L (-2.0-2.0); ABG HCO3 26.1 mmol/L (22.0-26.0); ABG PCO2 (T) 35.7 mmHg (35.0-48.0); ABG PO2 (T) 62.1 mmHg (75.0-100.0); ALLEN'S TEST POSITIVE; FCOHb 0.4 % (0.0-3.9); FLOW 4 L/min; FMetHb 0.2 % (0.0-1.5); FO2Hb 91.4 % (94-97); TOTAL HEMOGLOBIN 13.8 G/dl (14.0-18.0)
--- NOTE | 2021-02-17 09:31 | NUR ---
Reassessment: Pt has been extubated, OG tube and TF discontinued. Pt documented as A/O x 2 and with throat irritation. Noted order in place for pt to remain NPO until pt able to tolerate nursing BSS as pt continues with large amount of oral secretions. Recommend BSS with ST for further diet advancement recommendations. Per RN notes pt is very shaky and having EtOH withdraw, pt may benefit from adaptive-barclay and/or assistance with meals with diet advancement. Pt continues on EtOH w/d protocol receiving routine Thiamine, Folic acid, and MVM with iron. LBM 02/14. Routine Colace available however being held at this time d/t NPO status. Will continue to follow closely and make recommendations as appropriate. Rec: 1. Advance to regular diet as medically indicated; consider BSS with ST prior to diet advancement 2. Monitor need for adaptive-barclay/assistance with meals with diet advancement given EtOH w/d 3. Consider EN to meet estimated nutrient needs if unable to advance PO diet 4. Continue routine Thiamine, Folic acid, and MVM with iron for EtOH hx 5. Routine bowel care 6. Weekly scaled weights Addendum: 02/17/21 at [address] Amended: Links added.
[2021-02-17] MEDS: racepinephrine 11.25mg/0.5ml nebule IH PRN ×2 (11:40→16:42)
[2021-02-17] MEDS: methylPREDNISolone sod succ 125mg/2ml vial IV SCH ×2 (13:41→19:25)
--- NOTE | 2021-02-17 18:15 | NUR ---
Patient in room CICU 2007. I have received report from Nalini BARBA and had the opportunity to ask questions and assume patient care. Patient is resting, VS all WNL. Will continue to monitor.
[2021-02-18] VITALS (25 sets, daily range): BP systolic 122–159; BP diastolic 61–89
[2021-02-18] MEDS: methylPREDNISolone sod succ 125mg/2ml vial IV SCH ×4 (02:59→19:42)
[2021-02-18] MEDS: LORazepam 2 mg/ml vial IV PRN ×3 (02:59→23:01)
[2021-02-18 04:00] LABS: ALANINE AMINOTRANSFERASE 53 U/L (12-78); ALBUMIN 2.7 G/DL (3.4-5.0); ALBUMIN/GLOBULIN RATIO 0.5 (1.1-1.5); ALKALINE PHOSPHATASE 62 IU/L (46-116); ANION GAP 14 (8-16); ASPARTATE AMINO TRANSFERASE 46 U/L (10-37); BILIRUBIN,TOTAL 0.4 MG/DL (0.1-1.0); BLOOD UREA NITROGEN 20 MG/DL (7-18); BUN/CREATININE RATIO 31.3 (5.4-32.0); CALCIUM 9.2 MG/DL (8.5-10.1); CHLORIDE 104 MMOL/L (99-107); CREATININE 0.64 MG/DL (0.60-1.10); GLUCOSE 132 MG/DL (70-104); PHOSPHORUS 3.4 MG/DL (2.3-4.5); POTASSIUM 3.8 MMOL/L (3.5-5.1); SODIUM 144 MMOL/L (135-145); TOTAL CARBON DIOXIDE 26.4 MMOL/L (24-32); TOTAL PROTEIN 7.9 G/DL (6.4-8.2); eGFR > 90 ML/MIN
[2021-02-18] MEDS: albuterol 2.5 MG/3 ML nebule NEB SCH ×6 (04:33→23:16)
[2021-02-18 06:16] LABS: BASOPHILS % (AUTO) 0.2 % (0-1); EOSINOPHILS % (AUTO) 0 % (0-6); HEMATOCRIT 39.9 % (42.0-52.0); HEMOGLOBIN 13.1 g/dl (14.0-17.9); LYMPHOCYTES # (AUTO) 0.7 X10'3 (1.1-4.8); LYMPHOCYTES % (AUTO) 8.5 % (21-51); MEAN CORPUSCULAR HEMOGLOBIN 30.1 PG (27.0-31.0); MEAN CORPUSCULAR HGB CONC 32.8 g/dL (33.0-36.5); MEAN CORPUSCULAR VOLUME 91.9 FL (78-98); MEAN PLATELET VOLUME 9.4 FL (7.4-10.4); NEUTROPHILS # (AUTO) 6.4 X10'3 (1.8-7.7); NEUTROPHILS % (AUTO) 79.3 % (42-75); PLATELET COUNT 260 X10'3 (140-440); RED BLOOD COUNT 4.35 X10'6 (4.70-6.10); WHITE BLOOD COUNT 8.1 X10'3 (4.5-11.0)
--- NOTE | 2021-02-18 06:28 | NUR ---
Problems reprioritized. Patient report given, questions answered & plan of care reviewed with Hilary BARBA.
[2021-02-18] MEDS: thiamine inj. 100 MG in normal saline 100ml IV soln 100 ML IV SCH (07:19)
[2021-02-18] MEDS: heparin, porcine 5000 units/ml vial SQ SCH ×2 (07:20→19:42)
[2021-02-18] MEDS: pantoprazole 40 MG vial IV SCH (07:20)
[2021-02-18] MEDS: folic acid 1mg/0.2ml inj IV SCH (07:21)
[2021-02-18] MEDS: MULTIVIT-MIN/FERROUS GLUCONATE 9 MG/15 ML LIQUID NG SCH (08:00)
[2021-02-18] MEDS: docusate sodium 100mg/10ml UD cup PO SCH ×2 (08:00→20:00)
[2021-02-18] MEDS: normal saline 1000ml 1,000 ML IV SCH ×2 (09:23→23:04)
[2021-02-18] MEDS: acetaminophen 650mg rectal suppository RC PRN (16:33)
--- NOTE | 2021-02-18 18:16 | NUR ---
Problems reprioritized. Patient report given, questions answered & plan of care reviewed with JAMESON Atkinson.
--- NOTE | 2021-02-18 18:30 | NUR ---
Patient in room CICU 2007. I have received report from Hilary BARBA and had the opportunity to ask questions and assume patient care.
[2021-02-19] VITALS (8 sets, daily range): BP systolic 104–174; BP diastolic 67–86
[2021-02-19] MEDS: methylPREDNISolone sod succ 125mg/2ml vial IV SCH ×4 (01:54→20:09)
[2021-02-19] MEDS: LORazepam 2 mg/ml vial IV PRN ×3 (01:54→12:32)
--- NOTE | 2021-02-19 02:13 | NUR ---
Patient in room PCU 3014. I have received report from [facility] and had the opportunity to ask questions and assume patient care.
[2021-02-19] MEDS: albuterol 2.5 MG/3 ML nebule NEB SCH ×6 (02:58→23:25)
--- NOTE | 2021-02-19 06:06 | NUR ---
Problems reprioritized. Patient report given, questions answered & plan of care reviewed with Saskia.
--- NOTE | 2021-02-19 06:42 | NUR ---
Patient in room PCU 3014. I have received report from JAMESON Carmichael and had the opportunity to ask questions and assume patient care.
[2021-02-19 07:09] LABS: BASOPHILS # (AUTO) 0.1 X10'3 (0-0.2); BASOPHILS % (AUTO) 0.8 % (0-1); EOSINOPHILS % (AUTO) 0 % (0-6); HEMATOCRIT 38.5 % (42.0-52.0); HEMOGLOBIN 12.6 g/dl (14.0-17.9); LYMPHOCYTES # (AUTO) 0.8 X10'3 (1.1-4.8); LYMPHOCYTES % (AUTO) 9.2 % (21-51); MEAN CORPUSCULAR HGB CONC 32.8 g/dL (33.0-36.5); MEAN CORPUSCULAR VOLUME 91.6 FL (78-98); MEAN PLATELET VOLUME 9.6 FL (7.4-10.4); MONOCYTES # (AUTO) 0.8 X10'3 (0-0.9); MONOCYTES % (AUTO) 9.1 % (2-12); NEUTROPHILS % (AUTO) 80.9 % (42-75); PLATELET COUNT 292 X10'3 (140-440); RED CELL DISTRIBUTION WIDTH 17.3 % (11.5-14.5); WHITE BLOOD COUNT 8.7 X10'3 (4.5-11.0)
[2021-02-19 07:15] LABS: ALANINE AMINOTRANSFERASE 69 U/L (12-78); ALBUMIN 2.5 G/DL (3.4-5.0); ALBUMIN/GLOBULIN RATIO 0.5 (1.1-1.5); ALKALINE PHOSPHATASE 53 IU/L (46-116); ANION GAP 12 (8-16); ASPARTATE AMINO TRANSFERASE 50 U/L (10-37); BILIRUBIN,TOTAL 0.3 MG/DL (0.1-1.0); BLOOD UREA NITROGEN 21 MG/DL (7-18); BUN/CREATININE RATIO 38.2 (5.4-32.0); CALCIUM 9.4 MG/DL (8.5-10.1); CHLORIDE 108 MMOL/L (99-107); CREATININE 0.55 MG/DL (0.60-1.10); GLUCOSE 133 MG/DL (70-104); PHOSPHORUS 3.3 MG/DL (2.3-4.5); POTASSIUM 3.7 MMOL/L (3.5-5.1); SODIUM 145 MMOL/L (135-145); TOTAL CARBON DIOXIDE 24.7 MMOL/L (24-32); TOTAL PROTEIN 7.3 G/DL (6.4-8.2); eGFR > 90 ML/MIN
[2021-02-19] MEDS: folic acid 1mg/0.2ml inj IV SCH (08:00)
[2021-02-19] MEDS: pantoprazole 40 MG vial IV SCH (08:56)
[2021-02-19] MEDS: thiamine inj. 100 MG in normal saline 100ml IV soln 100 ML IV SCH (08:56)
[2021-02-19] MEDS: MULTIVIT-MIN/FERROUS GLUCONATE 9 MG/15 ML LIQUID NG SCH (08:57)
[2021-02-19] MEDS: heparin, porcine 5000 units/ml vial SQ SCH ×2 (08:57→20:08)
[2021-02-19] MEDS: docusate sodium 100mg/10ml UD cup PO SCH ×2 (08:58→20:08)
[2021-02-19] MEDS: normal saline 1000ml 1,000 ML IV SCH ×2 (13:38→15:20)
--- NOTE | 2021-02-19 18:33 | NUR ---
Problems reprioritized. Patient report given, questions answered & plan of care reviewed with JAMESON Messina. Pt sitting up eating dinner. No signs of distress at change of shift. All pt needs met at this time.
[2021-02-20] MEDS: methylPREDNISolone sod succ 125mg/2ml vial IV SCH ×3 (01:52→13:51)
[2021-02-20 02:00] VITALS: BP 135/81
[2021-02-20] MEDS: albuterol 2.5 MG/3 ML nebule NEB SCH ×5 (04:00→19:24)
[2021-02-20 06:00] VITALS: BP 142/75
--- NOTE | 2021-02-20 06:06 | NUR ---
Problems reprioritized. Patient report given, questions answered & plan of care reviewed with JAMESON Kruger.
--- NOTE | 2021-02-20 06:18 | NUR ---
Patient in room PCU 3014. I have received report from JAMESON Messina and had the opportunity to ask questions and assume patient care.
--- NOTE | 2021-02-20 06:21 | NUR ---
Patient in room PCU 3014. I have received report from Mayuri BARBA and had the opportunity to ask questions and assume patient care.
--- NOTE | 2021-02-20 06:41 | NUR ---
Paged PICC Nurse for PIV placement. re Giovanni Javed [phone]. Are you able to place a PIV? 5 unsuccessful RN attempts. No restrictions. [phone]
[2021-02-20 07:05] LABS: BASOPHILS # (AUTO) 0.1 X10'3 (0-0.2); BASOPHILS % (AUTO) 0.8 % (0-1); EOSINOPHILS % (AUTO) 0 % (0-6); HEMATOCRIT 38.5 % (42.0-52.0); HEMOGLOBIN 12.9 g/dl (14.0-17.9); LYMPHOCYTES # (AUTO) 1.2 X10'3 (1.1-4.8); MEAN CORPUSCULAR HEMOGLOBIN 30.4 PG (27.0-31.0); MEAN CORPUSCULAR HGB CONC 33.5 g/dL (33.0-36.5); MEAN CORPUSCULAR VOLUME 90.8 FL (78-98); MEAN PLATELET VOLUME 9.9 FL (7.4-10.4); MONOCYTES # (AUTO) 0.8 X10'3 (0-0.9); MONOCYTES % (AUTO) 7.9 % (2-12); NEUTROPHILS # (AUTO) 8.6 X10'3 (1.8-7.7); NEUTROPHILS % (AUTO) 80.3 % (42-75); PLATELET COUNT 312 X10'3 (140-440); RED BLOOD COUNT 4.25 X10'6 (4.70-6.10); RED CELL DISTRIBUTION WIDTH 17.4 % (11.5-14.5); WHITE BLOOD COUNT 10.8 X10'3 (4.5-11.0)
[2021-02-20 07:21] LABS: ALANINE AMINOTRANSFERASE 107 U/L (12-78); ALBUMIN 2.5 G/DL (3.4-5.0); ALBUMIN/GLOBULIN RATIO 0.6 (1.1-1.5); ALKALINE PHOSPHATASE 55 IU/L (46-116); ANION GAP 9 (8-16); ASPARTATE AMINO TRANSFERASE 74 U/L (10-37); BILIRUBIN,TOTAL 0.4 MG/DL (0.1-1.0); BLOOD UREA NITROGEN 14 MG/DL (7-18); CHLORIDE 106 MMOL/L (99-107); CREATININE 0.56 MG/DL (0.60-1.10); GLUCOSE 115 MG/DL (70-104); PHOSPHORUS 3.5 MG/DL (2.3-4.5); POTASSIUM 3.5 MMOL/L (3.5-5.1); SODIUM 142 MMOL/L (135-145); TOTAL CARBON DIOXIDE 26.7 MMOL/L (24-32); eGFR > 90 ML/MIN
[2021-02-20] MEDS: folic acid 1mg/0.2ml inj IV SCH (08:00)
[2021-02-20] MEDS: MULTIVIT-MIN/FERROUS GLUCONATE 9 MG/15 ML LIQUID NG SCH (08:43)
[2021-02-20] MEDS: pantoprazole 40 MG vial IV SCH (08:43)
[2021-02-20] MEDS: docusate sodium 100mg/10ml UD cup PO SCH ×2 (08:43→20:00)
[2021-02-20] MEDS: heparin, porcine 5000 units/ml vial SQ SCH ×2 (08:44→20:28)
[2021-02-20 11:40] VITALS: BP 136/84
[2021-02-20] MEDS: thiamine inj. 100 MG in normal saline 100ml IV soln 100 ML IV SCH (12:31)
[2021-02-20] MEDS: LORazepam 2 mg/ml vial IV PRN ×3 (13:50→23:40)
--- NOTE | 2021-02-20 14:36 | NUR ---
Reassessment: Pt has passed BSS and FIRE TECHNOLOGY INSTRUCTOR recommends Minced Moist/grind all and thin liquids. PO intake at first meals yesterday 25-50% avg; partially meeting needs. Last BM 02/14 with routine colace being given. Will send power pudding with next meal to encourage a BM; dietary notified. Will continue to follow PO intake closely. Rec: 1. Continue MM5 with thin liquids per FIRE TECHNOLOGY INSTRUCTOR/MD 2. Monitor need for adaptive-barclay/assistance with meals given EtOH w/d 3. Continue routine Thiamine, Folic acid, and MVM with iron for EtOH hx 4. Routine bowel care 6. Weekly scaled weights Addendum: 02/20/21 at 1436 by Jessica MCGRATH EFFICIENCY CLERK RD Amended: Links added. Addendum: 02/20/21 at [address] RD agrees w/ above hr intern note.
[2021-02-20 17:07] VITALS: BP 148/86
[2021-02-20 18:00] VITALS: BP 137/91
[2021-02-20] MEDS: normal saline 1000ml 1,000 ML IV SCH (18:02)
--- NOTE | 2021-02-20 18:31 | NUR ---
Problems reprioritized. Patient report given, questions answered & plan of care reviewed with Amol RN.
--- NOTE | 2021-02-20 18:33 | NUR ---
Problems reprioritized. Patient report given, questions answered & plan of care reviewed with JAMESON Carmichael. Pt sitting up in bed watching tv comfortably. No signs of distress at change of shift.
--- NOTE | 2021-02-20 18:35 | NUR ---
[place] documentation: I have reviewed and agree with all interventions, assessments performed and documented by JAMESON Moctezuma.
--- NOTE | 2021-02-20 18:36 | NUR ---
[place] Medication Administration: For this medication-pass time frame, all medication were reviewed, dispensed, administered and documented per hospital policy by JAMESON Moctezuma.
[2021-02-20 22:00] VITALS: BP 157/77
[2021-02-21] MEDS: LORazepam 2 mg/ml vial IV PRN ×2 (01:28→19:38)
[2021-02-21 02:00] VITALS: BP 140/80
[2021-02-21] MEDS: albuterol 2.5 MG/3 ML nebule NEB SCH ×6 (03:21→23:10)
[2021-02-21 06:00] VITALS: BP 133/82
--- NOTE | 2021-02-21 06:05 | NUR ---
Patient in room PCU 3014. I have received report from JAMESON Carmichael and had the opportunity to ask questions and assume patient care.
--- NOTE | 2021-02-21 06:05 | NUR ---
Patient in room PCU 3014. I have received report from Amol BARBA and had the opportunity to ask questions and assume patient care.
--- NOTE | 2021-02-21 06:12 | NUR ---
Student documentation: I have reviewed and agree with all interventions, assessments performed and documented by Saskia.
[2021-02-21 06:44] LABS: ALANINE AMINOTRANSFERASE 204 U/L (12-78); ALBUMIN 2.4 G/DL (3.4-5.0); ALBUMIN/GLOBULIN RATIO 0.6 (1.1-1.5); ALKALINE PHOSPHATASE 54 IU/L (46-116); ANION GAP 8 (8-16); ASPARTATE AMINO TRANSFERASE 143 U/L (10-37); BASOPHILS # (AUTO) 0.1 X10'3 (0-0.2); BASOPHILS % (AUTO) 0.8 % (0-1); BILIRUBIN,TOTAL 0.3 MG/DL (0.1-1.0); BLOOD UREA NITROGEN 12 MG/DL (7-18); CALCIUM 8.4 MG/DL (8.5-10.1); CHLORIDE 106 MMOL/L (99-107); EOSINOPHILS % (AUTO) 0.4 % (0-6); GLUCOSE 80 MG/DL (70-104); LYMPHOCYTES # (AUTO) 2.6 X10'3 (1.1-4.8); LYMPHOCYTES % (AUTO) 22.4 % (21-51); MEAN CORPUSCULAR HEMOGLOBIN 30.1 PG (27.0-31.0); MEAN CORPUSCULAR HGB CONC 33.2 g/dL (33.0-36.5); MEAN CORPUSCULAR VOLUME 90.6 FL (78-98); MEAN PLATELET VOLUME 9.6 FL (7.4-10.4); MONOCYTES # (AUTO) 1.2 X10'3 (0-0.9); NEUTROPHILS # (AUTO) 7.8 X10'3 (1.8-7.7); NEUTROPHILS % (AUTO) 66.4 % (42-75); PHOSPHORUS 3.4 MG/DL (2.3-4.5); PLATELET COUNT 297 X10'3 (140-440); RED BLOOD COUNT 4.31 X10'6 (4.70-6.10); RED CELL DISTRIBUTION WIDTH 16.9 % (11.5-14.5); SODIUM 141 MMOL/L (135-145); TOTAL CARBON DIOXIDE 27.1 MMOL/L (24-32); TOTAL PROTEIN 6.4 G/DL (6.4-8.2); WHITE BLOOD COUNT 11.8 X10'3 (4.5-11.0); eGFR > 90 ML/MIN
[2021-02-21] MEDS ORDERED: POTASSIUM BICARB 20meq eff tab 20 MEQ TABLET.EFF PO PRN (07:08)
--- NOTE | 2021-02-21 07:15 | NUR ---
Paged Giovanni Garcia [phone], critical K+ 3.0 down from 3.5 on 02/20. Will follow replacement protocol. Thanks Rufino Pimentel [phone]
[2021-02-21] MEDS: heparin, porcine 5000 units/ml vial SQ SCH ×2 (08:17→19:38)
[2021-02-21] MEDS: docusate sod 100mg capsule PO SCH ×2 (08:18→19:38)
[2021-02-21] MEDS: thiamine 100mg tablet PO SCH (08:18)
[2021-02-21] MEDS: POTASSIUM BICARB 20meq eff tab 20 MEQ TABLET.EFF PO PRN ×3 (08:18→17:16)
[2021-02-21] MEDS: multivitamins, therapeutics tablet PO SCH (08:19)
[2021-02-21] MEDS: predniSONE 20 mg tablet PO SCH (08:19)
[2021-02-21] MEDS: pantoprazole 40mg Tablet.DR PO SCH (08:19)
[2021-02-21] MEDS: folic acid 1mg tablet PO SCH (08:19)
[2021-02-21] MEDS: gabapentin 400mg capsule PO SCH (09:29)
[2021-02-21] MEDS: normal saline 1000ml 1,000 ML IV SCH ×2 (09:29→19:54)
[2021-02-21] MEDS: naltrexone 50mg tablet PO SCH (09:29)
[2021-02-21 11:00] VITALS: BP 140/83
[2021-02-21 15:00] VITALS: BP 132/85
[2021-02-21 18:00] VITALS: BP 132/81
--- NOTE | 2021-02-21 18:08 | NUR ---
[place] documentation: I have reviewed and agree with all interventions, assessments performed and documented by JAMESON Joy.
--- NOTE | 2021-02-21 18:09 | NUR ---
[place] Medication Administration: For this medication-pass time frame, all medication were reviewed, dispensed, administered and documented per hospital policy by JAMESON Joy.
--- NOTE | 2021-02-21 18:09 | NUR ---
Problems reprioritized. Patient report given, questions answered & plan of care reviewed with JAMESON Carmichael. Pt sitting up in bed, watching tv at change of shift. All pt needs met at this time.
--- NOTE | 2021-02-21 18:16 | NUR ---
Patient in room PCU 3014. I have received report from Saskia and had the opportunity to ask questions and assume patient care.
[2021-02-21] MEDS ORDERED: lurasidone 20mg tablet PO SCH (21:00)
[2021-02-21 22:00] VITALS: BP 137/78
[2021-02-22 02:00] VITALS: BP 121/82
[2021-02-22] MEDS: LORazepam 2 mg/ml vial IV PRN ×2 (03:11→10:27)
[2021-02-22] MEDS: albuterol 2.5 MG/3 ML nebule NEB SCH ×3 (03:24→11:15)
[2021-02-22 06:00] VITALS: BP 129/81
--- NOTE | 2021-02-22 06:20 | NUR ---
Problems reprioritized. Patient report given, questions answered & plan of care reviewed with Jennifer.
--- NOTE | 2021-02-22 06:52 | NUR ---
Patient in room PCU 3014. I have received report from JAMESON Carmichael and had the opportunity to ask questions and assume patient care.
[2021-02-22] MEDS: pantoprazole 40mg Tablet.DR PO SCH (08:15)
[2021-02-22] MEDS: gabapentin 400mg capsule PO SCH (08:15)
[2021-02-22] MEDS: docusate sod 100mg capsule PO SCH (08:15)
[2021-02-22] MEDS: multivitamins, therapeutics tablet PO SCH (08:15)
[2021-02-22] MEDS: naltrexone 50mg tablet PO SCH (08:15)
[2021-02-22] MEDS: folic acid 1mg tablet PO SCH (08:16)
[2021-02-22] MEDS: predniSONE 20 mg tablet PO SCH (08:16)
[2021-02-22] MEDS: thiamine 100mg tablet PO SCH (08:16)
[2021-02-22] MEDS: heparin, porcine 5000 units/ml vial SQ SCH (08:16)
[2021-02-22] MEDS: normal saline 1000ml 1,000 ML IV SCH (10:16)
[2021-02-22 11:00] VITALS: BP 126/72
[2021-02-22] MEDS ORDERED: MULT-25 PO (11:48)
[2021-02-22] MEDS ORDERED: thiamine tablet PO (11:48)
[2021-02-22] MEDS ORDERED: folic acid tablet PO (11:48)
[2021-02-22] MEDS ORDERED: LORA-269 PO (11:48)
[2021-02-22] MEDS ORDERED: PRED20TA PO (11:48)
--- NOTE | 2021-02-22 13:59 | NUR ---
Discharge: Pt is stable for discharge per MD ordres. ALl discharge instructions reviewed wtih cristofer and his mother and all questions answered. AA [place] hotline info given per request for alcohol cessation. Pt to make follow up appointment with his PCP at [facility]. New prescriptions escripted to Cathie on [facility], except hard copy for ativan and folic acid sent with pt. PIV discontinued. cannula intact. residential monitor discontinued. belongings collected. pt wheeled to [facility] where he met his mother to leave in private vehicle. pt without s/sx distress at discharge.
--- NOTE | 2021-02-23 15:16 | NUR ---
CASE MANAGEMENT DISCHARGE FOLLOW UP: Spoke with pt and his mother, Nichole, via telephone. Reports that he is doing okay, pt has very hoarse voice and is difficult to understand on phone; denies headache, seizure activity, confusion, agitation, tremors. Verbalizes understanding of s/sx requiring further evaluation/emergent assistance. Verbalizes understanding of new, stopped and current medications. Verbalizes compliance with MD discharge instructions. Verbalizes understanding of the importance in making/keeping follow-up appointments, will see PCP next 03/02/21. Pt states that he will be checking himself into rehab. States no further questions/concerns at this time.
== END 2021-02-22 14:36 | disposition home or self-care (01) | DRG 130 ==
LOC: ER 13:54 → ED HOLD 20:16 → CICU 2S 23:53 → PCU 3S 02-19 00:43
PROVIDERS: ADMIT Internal Medicine; ATTEND Internal Medicine
PROC: 5A1955Z Respiratory Ventilation, Greater than 96 Consecutive Hours (ICD-10-PCS; principal; 2021-02-11)
PROC: 0BH17EZ Insertion of Endotracheal Airway into Trachea, Via Natural or Artificial Opening (ICD-10-PCS; 2021-02-11)
PROC: 0DH67UZ Insertion of Feeding Device into Stomach, Via Natural or Artificial Opening (ICD-10-PCS; 2021-02-11)
DX: J96.00 Acute respiratory failure, unspecified whether with hypoxia or hypercapnia (principal); F10.231 Alcohol dependence with withdrawal delirium; D69.6 Thrombocytopenia, unspecified; R13.10 Dysphagia, unspecified; G40.909 Epilepsy, unspecified, not intractable, without status epilepticus; F32.9 Major depressive disorder, single episode, unspecified; K76.9 Liver disease, unspecified; F41.9 Anxiety disorder, unspecified; E87.6 Hypokalemia; D63.8 Anemia in other chronic diseases classified elsewhere; Z20.822 Contact with and (suspected) exposure to COVID-19; Z86.69 Personal history of other diseases of the nervous system and sense organs; Z79.899 Other long term (current) drug therapy
CPT/HCPCS: 36415; 36600; 70450; 70544; 70551; 71045; 76937; 80048; 80053; 81001; 82140; 82150; 82803; 82945; 82948; 83605; 83690; 83735; 84100; 84132; 84134; 84145; 84157; 84443; 84484; 85007; 85008; 85018; 85025; 85610; 87015; 87040; 87070; 87081; 87635; 89051; 92508; 92616; 94002; 94003; 94640; 94667; 94668; 94760; 94799; 96365; 96375; 97110; 97116; 97162; 97530; 99285; C9113; C9803; G0378; J1644; J1953; J2060; J2560; J2704; J2930; J3411; J3475; J3480; J3490; J7030; J7050; J7512